=== PATIENT | male | born 1950 | race African-American/Black ===

== ENCOUNTER 2017-07-18 00:02 | Emergency (ER) | payer MEDICARE ==
[~2017-07-18] VITALS: Ht 172.7 cm; Wt 75.0 kg
[2017-07-18] MEDS ORDERED: DEXAMETHASONE 10 MG/ML VIAL IV ONE (02:30)
[2017-07-18] MEDS ORDERED: FAMOTIDINE 20MG/2ML VIAL IV ONE (02:30)
[2017-07-18] MEDS ORDERED: DIPHENHYDRAMINE 50MG/ML VIAL IV ONE (02:30)
[2017-07-18 06:35] VITALS: BP 150/86
== END 2017-07-18 06:38 | disposition home or self-care (01) ==
LOC: ER 00:06
DX: T78.40XA Allergy, unspecified, initial encounter (principal); X58.XXXA Exposure to other specified factors, initial encounter; I10 Essential (primary) hypertension; M19.90 Unspecified osteoarthritis, unspecified site
CPT/HCPCS: 96374; 96375; 99284; J1100; J1200; J3490

== ENCOUNTER 2019-12-01 17:07 | Emergency (ER) | payer MEDICARE, MEDICAID ==
[~2019-12-01] VITALS: Ht 177.8 cm; Wt 72.0 kg
[2019-12-01] MEDS ORDERED: FAMOTIDINE 20MG/2ML VIAL IV ONE (18:45)
[2019-12-01] MEDS ORDERED: DIPHENHYDRAMINE 50MG/ML VIAL IV ONE (18:45)
[2019-12-01] MEDS ORDERED: METHYLPREDNISOLONE SOD SUCC 125 MG/2 ML VIAL IV ONE (18:45)
[2019-12-01 19:17] LABS: HEMATOCRIT. 35.1 % (42.0-52.0); HEMOGLOBIN. 11.6 g/dL (14.0-18.0); LYMPHOCYTES % 37.2 % (20.0-50.0); MEAN CORPUSCULAR HEMOGLOBIN 28.9 pg (28.0-32.0); MEAN CORPUSCULAR VOLUME 87.6 fL (80.0-94.0); MEAN PLATELET VOLUME 7.8 fl (7.4-10.4); MONOCYTES % 10.3 % (2.0-8.0); NEUTROPHILS % 49.5 % (40.0-76.0); PLATELET 217 x1000/uL (130-400); RED BLOOD CELL COUNT 4.01 mill/uL (4.7-6.1)
[2019-12-01 19:20] LABS: PROTHROMBIN TIME 10.4 sec (9.6-11.0)
[2019-12-01 19:22] LABS: CHLORIDE 108 mEq/L (98-107)
[2019-12-01] MEDS ORDERED: ONDANSETRON HCL 4MG/2ML INJ IV PRN (22:00)
[2019-12-01] MEDS ORDERED: MAGNESIUM/ALUMINUM HYDROXIDE/SIMETHICONE 30ML UDC PO PRN (22:00)
[2019-12-01] MEDS ORDERED: DOCUSATE SODIUM 100MG CAPSULE PO PRN (22:00)
[2019-12-01] MEDS ORDERED: GUAIFENESIN 200MG/10ML SUGAR FREE UDC PO PRN (22:00)
[2019-12-01] MEDS ORDERED: ACETAMINOPHEN 650MG/20.3ML UDC GT PRN ×2 (22:00)
[2019-12-01] MEDS ORDERED: ACETAMINOPHEN 650MG SUPP PR PRN ×2 (22:00)
[2019-12-01] MEDS ORDERED: ACETAMINOPHEN 325MG TABLET PO PRN ×2 (22:00)
[2019-12-01] MEDS ORDERED: HYDROCODONE/ACETAMINOPHEN 10/325MG TABLET PO PRN (22:00)
[2019-12-01] MEDS ORDERED: CLONIDINE 0.1MG TABLET PO PRN (22:00)
[2019-12-01] MEDS ORDERED: HYDROCODONE/APAP 7.5/325MG 1 TAB TABLET PO PRN (22:00)
[2019-12-02] MEDS: METHYLPREDNISOLONE SOD SUCC 125 MG/2 ML VIAL IV SCH ×2 (02:00→09:27)
[2019-12-02] MEDS: SODIUM CHLORIDE 0.9% INJ 3ML FLUSH IVF SCH ×2 (02:00→06:42)
[2019-12-02 05:19] LABS: BASOPHILS % 0.2 % (0.0-2.0); HEMATOCRIT. 40.2 % (42.0-52.0); HEMOGLOBIN. 13.2 g/dL (14.0-18.0); LYMPHOCYTES % 34.8 % (20.0-50.0); MEAN CORPUSCULAR HEMOGLOBIN 28.6 pg (28.0-32.0); MEAN CORPUSCULAR VOLUME 87.3 fL (80.0-94.0); MEAN PLATELET VOLUME 7.9 fl (7.4-10.4); MONOCYTES % 1.2 % (2.0-8.0); NEUTROPHILS % 63.8 % (40.0-76.0); PLATELET 246 x1000/uL (130-400); RED CELL DISTRIBUTION WIDTH 14.1 % (11.6-14.6)
[2019-12-02 05:26] LABS: CHLORIDE 107 mEq/L (98-107)
[2019-12-02 05:38] LABS: LDL CHOLESTEROL 86 mg/dL (5-100)
[2019-12-02 05:40] LABS: HDL CHOLESTEROL 122 mg/dL (40-59)
[2019-12-02] MEDS ORDERED: ENOXAPARIN 40MG/0.4ML SYR SUBCUT SCH (09:00)
[2019-12-02 10:10] VITALS: BP 136/77
== END 2019-12-02 10:11 | disposition left against medical advice (07) ==
LOC: ER 17:07 → EDBEDREQ 20:47 → EDBEDREQTM 20:47 → ER 12-02 10:11 → CANBEDREQ 12-02 20:29
DX: T78.3XXA Angioneurotic edema, initial encounter (principal); N28.9 Disorder of kidney and ureter, unspecified; X58.XXXA Exposure to other specified factors, initial encounter; I10 Essential (primary) hypertension
CPT/HCPCS: 36415; 71045; 80053; 80061; 85025; 85610; 86850; 86900; 86901; 86927; 93005; 96374; 96375; 96376; 99285; J1200; J2930; J3490; J1650; P9017

== ENCOUNTER 2021-07-06 13:01 | Emergency (ER) | payer MEDICARE, MEDICAID ==
[~2021-07-06] VITALS: Ht 172.7 cm; Wt 75.0 kg
[2021-07-06] MEDS ORDERED: EPINEPHRINE 1:1000 1 MG/ML AMP SUBCUT ONE (13:45)
[2021-07-06] MEDS ORDERED: DEXAMETHASONE 10 MG/ML VIAL IV ONE ×2 (13:45→14:00)
[2021-07-06] MEDS ORDERED: FAMOTIDINE 20MG/2ML VIAL IV ONE ×2 (13:45→14:00)
[2021-07-06] MEDS ORDERED: DIPHENHYDRAMINE 50MG/ML VIAL IV ONE ×2 (13:45→14:00)
[2021-07-06 15:28] LABS: BASOPHILS % 0.5 % (0.0-2.0); EOSINOPHILS % 0.2 % (0.0-5.0); HEMATOCRIT. 38.5 % (42.0-52.0); HEMOGLOBIN. 12.2 g/dL (14.0-18.0); LYMPHOCYTES % 15.3 % (20.0-50.0); MEAN CORPUSCULAR HEMOGLOBIN 28.2 pg (28.0-32.0); MEAN CORPUSCULAR VOLUME 88.9 fL (80.0-94.0); MEAN PLATELET VOLUME 7.5 fl (7.4-10.4); MONOCYTES % 7.5 % (2.0-8.0); NEUTROPHILS % 76.5 % (40.0-76.0); PLATELET 215 x1000/uL (130-400); RED BLOOD CELL COUNT 4.32 mill/uL (4.7-6.1)
[2021-07-06 15:33] LABS: CHLORIDE 105 mEq/L (98-107)
[2021-07-06 15:50] VITALS: BP 152/87
[2021-07-06] MEDS ORDERED: P50 MT (15:54)
[2021-07-06] MEDS ORDERED: EPIN0.3A3 IM (15:54)
== END 2021-07-06 17:32 | disposition admitted as inpatient to this hospital (09) ==
LOC: ER 13:01
DX: T78.3XXA Angioneurotic edema, initial encounter (principal); X58.XXXA Exposure to other specified factors, initial encounter; Y93.89 Activity, other specified; Y92.89 Other specified places as the place of occurrence of the external cause; Z91.013 Allergy to seafood; I10 Essential (primary) hypertension
CPT/HCPCS: 36415; 80053; 85025; 96374; 96375; 99284; J1100; J1200; J3490